=== PATIENT | female | born 1955 | race Caucasian/White ===

== ENCOUNTER 2020-07-10 14:23 | Emergency (ER) | payer OTHER ==
[~2020-07-10] VITALS: Ht 162.6 cm; Wt 65.9 kg
[2020-07-10 14:33] VITALS: Ht 162.6 cm; Wt 65.9 kg
[2020-07-10] MEDS ORDERED: LIPITOR20 MG PO (14:34)
[2020-07-10 14:55] LABS: BASOPHILS 1.1 % (0-2); HEMATOCRIT 37.4 % (36.0-48.0); HEMOGLOBIN 12.9 g/dL (12-16); LYMPHOCYTES 34.8 % (15-50); MCH 34.4 pg (26.0-34.0); MCHC 34.4 g/dL (31.0-37.0); MEAN PLATELET VOLUME 6.4 fL (7.4-10.4); MONOCYTES 7.4 % (2-11); NEUTROPHILS 55.7 % (40-80); PLATELET COUNT 316 10x3/uL (130-400); RBC 3.74 10x6/uL (4.00-5.40); RDW 12.5 % (11.5-14.5); WBC 7.3 10x3/uL (4.8-10.8)
[2020-07-10 15:03] LABS: CALC OSMOLALITY 279 mosm/kg (275-300); CALCIUM 9.3 mg/dL (8.5-10.1); CARBON DIOXIDE 31.4 mmol/L (21.0-32.0); CHLORIDE - SERUM 101 mmol/L (98-107); GLUCOSE 114 mg/dL (74-106); SODIUM 139 mmol/L (136-145); UREA NITROGEN 15 mg/dL (7-18); eGFR NON AFRICAN AMERICAN 59 mL/min (90-120)
[2020-07-10 15:14] LABS: ALBUMIN 3.9 g/dL (3.4-5.0); ALKALINE PHOSPHATASE 106 U/L (30-120); ALT (SGPT) 36 U/L (10-68); AMYLASE - SERUM 75 U/L (25-115); LIPASE 148 U/L (73-393); PROTEIN - SERUM 7.8 g/dL (6.4-8.2); TROPONIN-I < 0.017 ng/mL (0.000-0.060)
[2020-07-10 16:24] LABS: BACTERIA FEW HPF (NONE SEEN); BILIRUBIN NEGATIVE (NEGATIVE); KETONE NEGATIVE (NEGATIVE); NITRITE NEGATIVE (NEGATIVE); SQUAMOUS EPITHELIAL 0-5 HPF (0-4); UROBILINOGEN NORMAL mg/dL (< 2); WHITE CELLS - URINE 0-5 HPF (0-4)
[2020-07-10] MEDS ORDERED: MACROBID100 MG PO (16:52)
[2020-07-10] MEDS ORDERED: CEPHALEXIN500 M1 PO (16:52)
[2020-07-10] MEDS ORDERED: ACETAMINOPHEN500 M1 PO (16:53)
[2020-07-10] MEDS ORDERED: CYCLOBENZAPRINE10 MG PO (16:53)
[2020-07-10] MEDS ORDERED: IBUPROFEN800 MG PO (16:53)
[2020-07-10 17:30] VITALS: BP 127/64
== END 2020-07-10 17:31 | disposition home or self-care (01) ==
LOC: D.ER 14:23
PROVIDERS: Family Medicine
DX: R10.31 Right lower quadrant pain (principal); N39.0 Urinary tract infection, site not specified